=== PATIENT | female | born 2000 | race Two or more races ===

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

== ENCOUNTER → 2021-04-09 | Outpatient (CLI) | payer BC ==
[~2021-04-09] MED LIST: MEDR150I10; METHACHOLINE KIT (J7674) INH ONE; MILI1TAB
--- NOTE | 2021-04-09 12:42 | PFTRPT ---
Site: [facility], [address] [place], [address] ID: [id number] Name: MELBA RAI Visit Date: 04/09/2021 Second ID: [id number] Referring Doctor: Margie Burrell Reviewing Doctor: Gurvinder Workman MD [employer]earoom Host: [address]ress[address] RRT Age: 20 : 2000 Sex: Female Race: Height: 66.00 Inches Weight: 215.00 Lbs BSA: 2.06 Order IDs: [id number] Requested Test(s): <RESP-PFT.METH CHAL> Diagnosis: R06.02 of albuterol for post bronchodilator. Review Status: Not Reviewed Pre-Bronch Post-Bronch Pred Actual %Pred Actual %Chng SPIROMETRY FVC (L) 4.03 4.14 102 4.08 -1 FEV1 (L) 3.52 3.59 101 3.57 FEV1/FVC (%) 87 87 99 88 1 FEF 25% (L/sec) 6.16 6.45 104 6.59 2 FEF 50% (L/sec) 4.80 5.34 111 4.92 -7 FEF 75% (L/sec) 2.14 1.96 91 2.00 1 FEF 25-75% (L/sec) 3.88 4.22 108 4.18 FEF Max (L/sec) 7.12 6.56 92 7.19 9 FIVC (L) 3.54 3.87 9 FIF 50% (L/sec) 4.59 3.47 75 2.86 -17 FIF Max (L/sec) 3.98 3.51 -11 Expiratory Time (sec) 6.15 6.15 Back Extrap Vol (L) 0.16 0.11 -31 Time To FEFmax (sec) 0.125 0.085 -31
== END ==
LOC: M CARPUL 11:38
PROVIDERS: ATTEND Nurse Practitioner Adult Health
DX: R06.02 Shortness of breath (principal)

== ENCOUNTER → 2021-04-23 | Outpatient (CLI) | payer BC ==
[~2021-04-23] MED LIST changes: -METHACHOLINE KIT (J7674) INH ONE
--- NOTE | 2021-04-23 17:25 | REP ---
INDICATION: ABN FINDING OF LUNG. COMPARISON: None TECHNIQUE: This procedure was performed by Saundra Luong [facility], under the direct supervision of Dr. Man. Images were reviewed with Dr. Man prior to dictation. While the patient was standing in the AP and lateral positions fluoroscopy was utilized while the patient did inspiration, expiration, and deep breathing techniques. FINDINGS: Both hemidiaphragm demonstrate normal amplitude and direction of motion with inspiration, expiration, and deep breathing. IMPRESSION: Unremarkable sniff test 0.6 minutes of fluoroscopy time was utilized for this procedure. Some fluoroscopic images are performed with last image hold technology. These images require no additional radiation. <Electronically signed by Saundra Luong > 04/23/21 1716 <Electronically signed by Jean-Pierre Man > 04/23/21 [id number]
== END ==
LOC: M RAD 10:14
PROVIDERS: ATTEND Nurse Practitioner Adult Health
DX: R91.8 Other nonspecific abnormal finding of lung field (principal)

== ENCOUNTER → 2021-09-18 | Outpatient (CLI) | payer BC | LOC: M RAD 15:30 | PROVIDERS: ATTEND Internal Medicine Cardiovascular Disease | DX: R07.89 Other chest pain (principal) ==

== ENCOUNTER → 2021-09-18 | Outpatient (CLI) | payer BC | LOC: M RAD 15:39 | PROVIDERS: ATTEND Nurse Practitioner Adult Health | DX: J45.40 Moderate persistent asthma, uncomplicated (principal) ==